=== PATIENT | male | born 1990 | race American Indian/Alaskan Native ===

== ENCOUNTER 2018-07-25 16:45 | Emergency (ER) | payer MEDICARE ==
--- NOTE | 2018-07-25 16:56 | Emergency Department Report ---
Blank Doc - Documentation Documentation: c/o of left sided chest pain while walking only. Newly homeless and worried of where he is going to go. No dizziness or sob.
[2018-07-25 17:00] VITALS: BP 100/67
--- NOTE | 2018-07-25 17:22 | XRay Report ---
PROCEDURE: XR CHEST ROUTINE 2V TECHNIQUE: PA and lateral chest radiographs were obtained. HISTORY: left chest pain COMPARISONS: None. FINDINGS: Heart: Normal. Mediastinum/Vessels: Normal. Lungs/Pleural space: Normal. Bony thorax: No acute osseous abnormality. IMPRESSION: Normal examination. This document is electronically signed by Wan Powell MD., July 25 2018 05:20:00 PM ET
[2018-07-25] MEDS ORDERED: NAPROSYN PO ONE (17:39)
[2018-07-25 17:56] LABS: Hematocrit 46.4 % (35.5-45.6); Hemoglobin 15.7 gm/dl (11.8-15.2); Mean Corpuscular HGB Conc 34 % (32-34); Mean Corpuscular Volume 93 fl (84-94); Platelet Count 230 K/mm3 (140-440); Red Blood Count 4.98 M/mm3 (3.65-5.03); Red Cell Distribution Width 14.4 % (13.2-15.2)
[2018-07-25 18:17] LABS: BUN/Creatinine Ratio 14; Blood Urea Nitrogen 17 mg/dL (9-20); Calcium 9.8 mg/dL (8.4-10.2); Hemolysis Index 13
--- NOTE | 2018-07-25 18:20 | Emergency Department Report ---
ED Chest Pain HPI - General Chief Complaint: Chest Pain Stated Complaint: CHEST PAIN Time Seen by Provider: 07/25/18 16:51 Source: patient Mode of arrival: Ambulatory Limitations: No Limitations - History of Present Illness Initial Comments: Patient is a 28-year-old male presents complaining of chest pain that began around 12 noon today. Patient states he is doing work walking from the [employer] and is very tired and she was a little dizzy from all the walking. Patient says his walking for about 6 hours Patient denies any medical problems. He currently does not take any medications for any medical conditions. Patient also states that he is homeless and will like to be assisted with a list of homeless shelters that he can be placed in. He denies fevers or chills. Nausea vomiting/abdominal pain/shortness of breath MD Complaint: chest pain - Related Data Previous Rx's Medication Instructions Recorded Last Taken Type Dicyclomine [Bentyl] 20 mg PO QID PRN #20 tablet 12/15/17 Unknown Rx Ondansetron [Zofran Odt] 4 mg PO Q8HR PRN #20 tab.rapdis 12/15/17 Unknown Rx Ibuprofen [Motrin] 800 mg PO Q8HR #25 tablet 07/25/18 Unknown Rx Allergies Allergy/AdvReac Type Severity Reaction Status Date / Time No Known Allergies Allergy Verified 07/25/18 16:45 Heart Score - HEART Score History: Slightly suspicious EKG: Normal Age: < 45 Risk factors: No known risk factors Troponin: < normal limit HEART Score: 0 ED Review of Systems ROS: Stated complaint: CHEST PAIN Other details as noted in HPI Comment: All other systems reviewed and negative ED Past Medical Hx - Past Medical History Previous Medical History?: Yes Additional medical history: BRONCHITITS - Surgical History Past Surgical History?: No - Social History Smoking Status: Never Smoker Substance Use Type: None - Medications Home Medications: Home Medications Medication Instructions Recorded Confirmed Last Taken Type Dicyclomine [Bentyl] 20 mg PO QID PRN #20 tablet 12/15/17 Unknown Rx Ondansetron [Zofran Odt] 4 mg PO Q8HR PRN #20 tab.rapdis 12/15/17 Unknown Rx Ibuprofen [Motrin] 800 mg PO Q8HR #25 tablet 07/25/18 Unknown Rx ED Physical Exam - General Limitations: No Limitations General appearance: alert, in no apparent distress - Head Head exam: Present: atraumatic, normocephalic - Eye Eye exam: Present: normal appearance - ENT ENT exam: Present: mucous membranes moist - Neck Neck exam: Present: normal inspection - Respiratory Respiratory exam: Present: normal lung sounds bilaterally. Absent: respiratory distress - Cardiovascular Cardiovascular Exam: Present: regular rate, normal rhythm. Absent: systolic murmur, diastolic murmur, rubs, gallop - GI/Abdominal GI/Abdominal exam: Present: soft, normal bowel sounds - Rectal Rectal exam: Present: deferred - Extremities Exam Extremities exam: Present: normal inspection - Back Exam Back exam: Present: normal inspection - Neurological Exam Neurological exam: Present: alert, oriented X3 - Psychiatric Psychiatric exam: Present: normal affect, normal mood - Skin Skin exam: Present: warm, dry, intact, normal color. Absent: rash ED Course Vital Signs 07/25/18 16:59 Temperature 98.5 F Pulse Rate 112 H Respiratory 16 Rate Blood Pressure 100/67 O2 Sat by Pulse 98 Oximetry GOPAL score - Gopal Score Age > 65: (0) No Aspirin use within the Past 7 Days: (0) No 3 or more CAD Risk Factors: (0) No 2 or more Angina events in past 24 hrs: (0) No Known CAD with more than 50% Stenosis: (0) No Elevated Cardiac Markers: (0) No ST Deviation Greater than 0.5mm: (0) No GOPAL Score: 0 ED Medical Decision Making - Lab Data Result diagrams: 07/25/18 17:41 07/25/18 17:41 Laboratory Results - last 72 hr 07/25/18 07/25/18 17:41 17:41 WBC 4.4 L RBC 4.98 Hgb 15.7 H Hct 46.4 H MCV 93 MCH 32 MCHC 34 RDW 14.4 Plt Count 230 Sodium 139 Potassium 4.3 Chloride 102.0 Carbon Dioxide 26 Anion Gap 15 BUN 17 Creatinine 1.2 Estimated GFR > 60 BUN/Creatinine Ratio 14 Glucose 96 Calcium 9.8 Troponin T < 0.010 - EKG Data EKG shows normal: sinus rhythm - EKG Data Interpretation: no acute changes - Radiology Data Radiology results: report reviewed, image reviewed PROCEDURE: XR CHEST ROUTINE 2V TECHNIQUE: PA and lateral chest radiographs were obtained. HISTORY: left chest pain COMPARISONS: None. FINDINGS: Heart: Normal. Mediastinum/Vessels: Normal. Lungs/Pleural space: Normal. Bony thorax: No acute osseous abnormality. IMPRESSION: Normal examination. This document is electronically signed by Wan Jose MD., July 25 2018 05:20:00 PM ET Transcribed By: MAGGIE Dictated By: SUDARSHAN JOSE MD Electronically Authenticated By: SUDARSHAN JOSE MD Signed Date/Time: 07/25/18 1722 - Medical Decision Making 28-year-old male presents with muscular chest pain. There was no case management available at this time. Discussed the patient is given a list of homeless shelters. All labs are within normal limits, troponin negative, chest x-ray shows no acute findings Discussed all findings with the patient. Discussed with patient to keep penetrated as much as he can avoid symptoms. Vital signs are normalized patient is in no acute distress. Critical care attestation.: If time is entered above; I have spent that time in minutes in the direct care of this critically ill patient, excluding procedure time. ED Disposition Clinical Impression: Chest pain, musculoskeletal Disposition: -01 TO HOME OR SELFCARE Is pt being admited?: No Does the pt Need Aspirin: No Condition: Stable Instructions: Chest Pain (ED), Costochondritis (ED) Additional Instructions: Make sure to follow up with the primary care physician as discussed. Take all your medications as you've been prescribed. If you have any worsening symptoms or develop new symptoms please return to ED immediately. Prescriptions: Ibuprofen [Motrin] 800 mg PO Q8HR #25 tablet Referrals: TENA OBREGON MD [Primary Care Provider] - 3-5 Days [facility] [Outside] - 3-5 Days [facility] [Outside] - 3-5 Days Forms: Work/School Release Form(ED) Time of Disposition: 18:51
== END 2018-07-25 19:00 | disposition home or self-care (01) ==
LOC: ED 16:45
DX: R07.89 Other chest pain (principal); R42 Dizziness and giddiness
CPT/HCPCS: 36415; 71046; 80048; 84484; 85027; 93005; 93010; 99284